=== PATIENT | male | born 1960 | race Hispanic/Latino ===

== ENCOUNTER 2017-07-13 07:31 | Inpatient (IN) | payer OTHER ==
[~2017-07-13] VITALS: Ht 182.9 cm; Wt 108.0 kg
[2017-07-13 12:02] VITALS: BP 132/82
[2017-07-13] MEDS ORDERED: COLACE100 MG PO (12:10)
[2017-07-13] MEDS ORDERED: NORCO 5/3251 TABLET PO (12:12)
[2017-07-13] MEDS ORDERED: FLOMAX0.4 MG PO (12:13)
[2017-07-13] MEDS ORDERED: FLEXERIL10 MG PO ×2 (12:14→12:15)
[2017-07-13] MEDS ORDERED: SIMVASTATIN20 MG PO (12:16)
[2017-07-13] MEDS ORDERED: TRAMADOL HCL50 MG PO (12:17)
[2017-07-13] MEDS ORDERED: PROVENTIL HFA6.7 GM IH (12:19)
[2017-07-13] MEDS ORDERED: XANAX1 MG PO (12:20)
[2017-07-13] MEDS ORDERED: ASPIR 8181 M1 PO (12:20)
[2017-07-13] MEDS ORDERED: BACLOFEN10 MG PO (12:22)
[2017-07-13] MEDS ORDERED: ADVAIR 500/501 DISK IH (12:23)
[2017-07-13] MEDS ORDERED: GABAPENTIN400 MG PO (12:24)
[2017-07-13] MEDS ORDERED: HYZAAR 100-11 TABLET PO (12:25)
[2017-07-13] MEDS ORDERED: XALATAN2.5 ML BOTH EYES (12:25)
[2017-07-13] MEDS ORDERED: SINGULAIR10 MG PO (12:26)
[2017-07-13] MEDS ORDERED: ZANTAC300 MG PO (12:27)
[2017-07-13] MEDS ORDERED: TRENTAL400 MG PO (12:27)
[2017-07-13] MEDS ORDERED: VITAMIN D2000 UNI1 PO (12:28)
[2017-07-13 15:06] VITALS: BP 126/74
[2017-07-14 06:01] VITALS: BP 126/72
[2017-07-14 06:02] LABS: HEMATOCRIT 37.6 % (38.0-50.0); HEMOGLOBIN 12.5 G/DL (12.5-16.6); MCH 29.5 PG (29.0-34.0); MCHC 33.2 G/DL (30.0-36.0); MCV 88.7 FL (86-99); PLATELET COUNT 257 K/uL (156-360); RBC DIS.WIDTH-CV 12.7 % (11.8-14.6); RBC DIS.WIDTH-SD 41.4 % (39-53); RED BLOOD COUNT 4.24 M/uL (4.00-5.50); WHITE BLOOD COUNT 7.6 K/uL (4.1-10.2)
[2017-07-14 06:24] LABS: ALBUMIN 3.6 G/DL (3.2-4.8); ALKALINE PHOSPHATASE 173 IU/L (3-129); ALT (GPT) 238 IU/L (3-49); AST (GOT) 80 IU/L (2-34); CHLORIDE 98 MEQ/L (99-109); CREATININE 0.9 MG/DL (0.6-1.3); GFR ESTIMATE (CALCULATED) > 59 mL/min/ (58.99-99999); GLUCOSE 115 mg/dL (70-99); POTASSIUM 4.8 MEQ/L (3.7-5.4); SODIUM 134 MEQ/L (136-147); TOTAL PROTEIN 6.3 G/DL (6.4-8.3); UREA NITROGEN (BUN) 13 mg/dL (9-23)
[2017-07-14 16:35] VITALS: BP 122/70
[2017-07-15 05:17] VITALS: BP 116/71
[2017-07-15 05:37] LABS: INTER. NORMALIZED RATIO 1.2
[2017-07-15 05:39] LABS: PTT 29.3 SEC (25-37)
[2017-07-15 06:02] LABS: ALBUMIN 3.7 G/DL (3.2-4.8); ALKALINE PHOSPHATASE 179 IU/L (3-129); ALT (GPT) 198 IU/L (3-49); AST (GOT) 54 IU/L (2-34); DIRECT BILIRUBIN 0.2 mg/dL (0.0-0.3); TOTAL BILIRUBIN 0.9 MG/DL (0.0-1.0); TOTAL PROTEIN 6.6 G/DL (6.4-8.3)
[2017-07-15 06:05] LABS: A/G RATIO 1.5 (1.1-1.8); ALBUMIN 3.6 G/DL (3.4-5.0); GLOBULINS 2.4 G/DL (2.3-3.5)
[2017-07-15 06:56] LABS: IRON 33 MCG/DL (35-150); TRANSFERRIN (TIBC) 172.7 mg/dL (215-380); TRANSFERRIN SATUR. 19 % (20-55)
[2017-07-15 10:15] LABS: FERRITIN 218 NG/ML (22-322)
[2017-07-15 10:52] LABS: BASOPHIL (%) 0.4 % (0-1); EOSINOPHIL (%) 1.7 % (0-5); EOSINOPHIL COUNT 0.2 K/uL (0-0.3); HEMATOCRIT 41.9 % (38.0-50.0); HEMOGLOBIN 13.7 G/DL (12.5-16.6); IMMATURE GRANULOCYTE (%) 0.5 % (0.0-0.7); LYMPHOCYTE (%) 14.7 % (15-42); LYMPHOCYTE COUNT 1.5 K/uL (1.0-2.8); MCH 29.3 PG (29.0-34.0); MCHC 32.7 G/DL (30.0-36.0); MCV 89.5 FL (86-99); MONOCYTE COUNT 0.7 K/uL (0-0.8); NEUTROPHIL (%) 75.7 % (45-76); NEUTROPHIL COUNT 7.7 K/uL (1.8-6.4); PLATELET COUNT 305 K/uL (156-360); RBC DIS.WIDTH-CV 12.5 % (11.8-14.6); RED BLOOD COUNT 4.68 M/uL (4.00-5.50); WHITE BLOOD COUNT 10.1 K/uL (4.1-10.2)
[2017-07-15 10:56] LABS: SODIUM 134 MEQ/L (136-147)
[2017-07-15 11:56] LABS: HEPATITIS B SURFACE ANTIGEN Nonreactive; HEPATITIS C ANTIBODY Nonreactive
[2017-07-15 11:58] LABS: ANTI-HEPATITIS A VIRUS (IGM) Nonreactive; ANTI-HEPATITIS B CORE (IGM) Nonreactive
[2017-07-15 15:58] VITALS: BP 107/69
[2017-07-16 05:25] VITALS: BP 119/69
[2017-07-16 14:03] LABS: ALBUMIN 3.11 G/DL (3.6-4.9); ALPHA-2 GLOBULIN 1.07 G/DL (0.45-0.85); BETA-GLOBULIN 0.78 G/DL (0.65-1.15); GAMMA-GLOBULIN 0.65 G/DL (0.60-1.35)
[2017-07-16 15:31] VITALS: BP 105/50
[2017-07-17 05:07] VITALS: BP 118/75
[2017-07-17 15:09] VITALS: BP 127/69
[2017-07-18 05:22] VITALS: BP 118/78
[2017-07-18 16:30] VITALS: BP 111/67
[2017-07-19 05:37] VITALS: BP 132/74
[2017-07-19 07:07] LABS: HEMATOCRIT 35.6 % (38.0-50.0); MCH 29.1 PG (29.0-34.0); MCHC 32.9 G/DL (30.0-36.0); MCV 88.6 FL (86-99); PLATELET COUNT 340 K/uL (156-360); RBC DIS.WIDTH-CV 12.1 % (11.8-14.6); RBC DIS.WIDTH-SD 39.3 % (39-53); RED BLOOD COUNT 4.02 M/uL (4.00-5.50); WHITE BLOOD COUNT 8.3 K/uL (4.1-10.2)
[2017-07-19 07:10] LABS: ALBUMIN 3.3 G/DL (3.2-4.8); ALKALINE PHOSPHATASE 173 IU/L (3-129); ALT (GPT) 100 IU/L (3-49); DIRECT BILIRUBIN 0.1 mg/dL (0.0-0.3)
[2017-07-19 07:11] LABS: AST (GOT) 27 IU/L (2-34); HEMOGLOBIN 11.7 G/DL (12.5-16.6); TOTAL BILIRUBIN 0.6 MG/DL (0.0-1.0)
[2017-07-19 07:21] LABS: ALBUMIN 3.5 G/DL (3.2-4.8); ALKALINE PHOSPHATASE 174 IU/L (3-129); ALT (GPT) 100 IU/L (3-49); AST (GOT) 27 IU/L (2-34); CHLORIDE 99 MEQ/L (99-109); CREATININE 0.8 MG/DL (0.6-1.3); GFR ESTIMATE (CALCULATED) > 59 mL/min/ (58.99-99999); GLUCOSE 95 mg/dL (70-99); POTASSIUM 4.4 MEQ/L (3.7-5.4); SODIUM 137 MEQ/L (136-147); TOTAL BILIRUBIN 0.6 MG/DL (0.0-1.0); TOTAL PROTEIN 5.9 G/DL (6.4-8.3); UREA NITROGEN (BUN) 10 mg/dL (9-23)
[2017-07-19 15:38] VITALS: BP 128/75
[2017-07-20 05:10] VITALS: BP 111/73
[2017-07-20 09:02] VITALS: BP 134/78
[2017-07-20 14:49] VITALS: BP 133/77
[2017-07-21] MEDS ORDERED: FLEXERIL10 MG PO (01:32)
[2017-07-21] MEDS ORDERED: TRENTAL400 MG PO (01:32)
[2017-07-21] MEDS ORDERED: DULERA 200 MCG/13 GM IH (01:32)
[2017-07-21] MEDS ORDERED: PROVENTIL HFA6.7 GM IH (01:32)
[2017-07-21] MEDS ORDERED: Zeasorb Antifungal T TP (01:32)
[2017-07-21] MEDS ORDERED: FLOMAX0.4 MG PO (01:32)
[2017-07-21] MEDS ORDERED: SENNA PLUS TAB1 EACH PO (01:32)
[2017-07-21] MEDS ORDERED: ASPIR 8181 M1 PO (01:32)
[2017-07-21] MEDS ORDERED: SIMVASTATIN20 MG PO (01:32)
[2017-07-21] MEDS ORDERED: GABAPENTIN400 MG PO (01:33)
[2017-07-21] MEDS ORDERED: XALATAN2.5 ML BOTH EYES (01:33)
[2017-07-21] MEDS ORDERED: COLACE100 MG PO (01:33)
[2017-07-21] MEDS ORDERED: ZANTAC300 MG PO (01:33)
[2017-07-21] MEDS ORDERED: TRAMADOL HCL50 MG PO (01:33)
[2017-07-21] MEDS ORDERED: HYZAAR 100-11 TABLET PO (01:33)
[2017-07-21 05:34] VITALS: BP 111/58
[2017-07-21 06:53] LABS: HEMATOCRIT 35.5 % (38.0-50.0); HEMOGLOBIN 11.5 G/DL (12.5-16.6); MCH 28.6 PG (29.0-34.0); MCHC 32.4 G/DL (30.0-36.0); MCV 88.3 FL (86-99); PLATELET COUNT 354 K/uL (156-360); RBC DIS.WIDTH-SD 38.7 % (39-53); RED BLOOD COUNT 4.02 M/uL (4.00-5.50); WHITE BLOOD COUNT 8.9 K/uL (4.1-10.2)
[2017-07-21 07:11] LABS: CHLORIDE 100 MEQ/L (99-109); CREATININE 0.9 MG/DL (0.6-1.3); GFR ESTIMATE (CALCULATED) > 59 mL/min/ (58.99-99999); GLUCOSE 111 mg/dL (70-99); POTASSIUM 4.1 MEQ/L (3.7-5.4); SODIUM 138 MEQ/L (136-147); UREA NITROGEN (BUN) 14 mg/dL (9-23)
[2017-07-21 15:39] VITALS: BP 124/76
== END 2017-07-21 16:28 | disposition home health service (06) | DRG 945 ==
LOC: EDBD → 3WEST 07:31 → ENPENDDIS 07-20 → 3WEST 07-21 16:28
PROVIDERS: Internal Medicine Pulmonary Disease; Physical Medicine & Rehabilitation Pain Medicine; Specialist
PROC: F07M7ZZ Manual Therapy Techniques Treatment of Musculoskeletal System - Whole Body (ICD-10-PCS; principal; 2017-07-13)
DX: G89.18 Other acute postprocedural pain (principal); D49.2 Neoplasm of unspecified behavior of bone, soft tissue, and skin; R26.9 Unspecified abnormalities of gait and mobility; M50.30 Other cervical disc degeneration, unspecified cervical region; I10 Essential (primary) hypertension; E87.1 Hypo-osmolality and hyponatremia; R33.9 Retention of urine, unspecified; J44.9 Chronic obstructive pulmonary disease, unspecified; E78.5 Hyperlipidemia, unspecified; E66.9 Obesity, unspecified; N36.8 Other specified disorders of urethra; J98.11 Atelectasis; D72.829 Elevated white blood cell count, unspecified; R21 Rash and other nonspecific skin eruption; D64.9 Anemia, unspecified; K76.0 Fatty (change of) liver, not elsewhere classified; G62.9 Polyneuropathy, unspecified; F41.9 Anxiety disorder, unspecified; E78.00 Pure hypercholesterolemia, unspecified; H40.9 Unspecified glaucoma; I87.2 Venous insufficiency (chronic) (peripheral); M19.90 Unspecified osteoarthritis, unspecified site; N31.2 Flaccid neuropathic bladder, not elsewhere classified; F32.9 Major depressive disorder, single episode, unspecified; Z68.32 Body mass index [BMI] 32.0-32.9, adult; K80.20 Calculus of gallbladder without cholecystitis without obstruction; Z80.42 Family history of malignant neoplasm of prostate; Z82.49 Family history of ischemic heart disease and other diseases of the circulatory system; Z77.011 Contact with and (suspected) exposure to lead
CPT/HCPCS: 71046; 76700; 80048; 80053; 80074; 80076; 82390; 82728; 83540; 84165; 84295; 84466; 85025; 85027; 85610; 85730; 86256 90; 94640; 94640 76; 97110 GO; 97530 GP; 99202